=== PATIENT | male | born 1945 | race Caucasian/White ===

== ENCOUNTER 2016-12-05 05:48 | Emergency (ER) | payer BC ==
[2016-12-05] MEDS ORDERED: NS 0.9% 1000 ML* 1,000 ML IV ONE (06:08)
[2016-12-05] MEDS ORDERED: Ketorolac INJ* 30 MG/ML 1 ML VIAL ONE (06:17)
[2016-12-05 06:45] LABS: Hematocrit 43 % (42-52); Hemoglobin 14.2 g/dl (14.0-18.0); Mean Corpuscular HGB Conc 33 g/dl (31-36); Mean Corpuscular Hemoglobin 30 pg (27-31); Mean Corpuscular Volume 90 fL (80-94); Mean Platelet Volume 9 um3 (7.4-10.4); Red Blood Count 4.76 10^6/ul (4.0-5.4); Red Cell Distribution Width 14 % (10.5-15); White Blood Count 8.2 10^3/ul (3.5-10.8)
[2016-12-05 06:50] LABS: Urine Bacteria Absent (Absent); Urine Bilirubin Negative (Negative); Urine Glucose Negative (Negative); Urine Nitrite Negative (Negative)
[2016-12-05 07:02] LABS: ALT 15 U/L (7-52); AST 17 U/L (13-39); Albumin 4.2 g/dL (3.2-5.2); Alkaline Phosphatase 50 U/L (34-104); Anion Gap 5 mmol/L (2-11); BUN/Creatinine Ratio 19.7 (8-20); Blood Urea Nitrogen 25 mg/dL (6-24); C Reactive Protein < 1.00 mg/L (< 5.00); CO2 Carbon Dioxide 24 mmol/L (22-32); Calcium 9.4 mg/dL (8.6-10.3); Chloride 108 mmol/L (101-111); EGFR African American 72.1 (>60); EGFR Non-African American 56.1 (>60); Globulin 2.5 g/dL (2-4); Glucose 125 mg/dL (70-100); Lipase 28 U/L (11.0-82.0); Potassium 4.1 mmol/L (3.5-5.0); Sodium 137 mmol/L (133-145); Total Protein 6.7 g/dL (6.4-8.9)
[2016-12-05 07:04] LABS: Troponin I 0.01 ng/mL (<0.04)
[2016-12-05] MEDS ORDERED: Ketorolac INJ* 30 MG/ML 1 ML VIAL IV PUSH ONE (07:50)
[2016-12-05] MEDS ORDERED: NS 0.9% 1000 ML* 2,000 ML IV ONE (07:50)
--- NOTE | 2016-12-05 08:31 | RAD ---
CLINICAL HISTORY: Left flank pain COMPARISON: April 04, 2005 TECHNIQUE: Multiple contiguous axial CT scans were obtained of the abdomen and pelvis, without intravenous contrast enhancement. Coronal and sagittal multiplanar reformations are submitted for review. Oral contrast was not administered. FINDINGS: The study is limited by the lack of intravenous contrast. This limits evaluation of the solid organs and vasculature. LUNG BASES: There are trace bilateral pleural effusions LIVER: The liver is normal in shape, size, contour, and attenuation. BILE DUCTS: There is no intrahepatic or extrahepatic biliary dilatation. GALLBLADDER: The gallbladder is normal, without pericholecystic inflammatory change. PANCREAS: The pancreas is normal, without mass or ductal dilatation. SPLEEN: Normal in size and appearance. UPPER GI TRACT: Evaluation of the gastrointestinal tract is limited by incomplete gastric distention. The upper GI tract is unremarkable. SMALL BOWEL AND MESENTERY: The small bowel is normal in contour, course, and caliber. There is no obstruction or dilatation. COLON: The colon is normal in contour, course, caliber. There is no pericolonic inflammatory change. ADRENALS: Normal bilaterally. KIDNEYS: There has been interval development of a multiseptated cyst of the lower pole of the right kidney measuring up to 5.2 cm in size. There are bilateral renal calyceal stones. There is a 0.2 cm left UVJ stone. There is mild hydroureter. BLADDER: The bladder is incompletely distended but is grossly normal. PELVIC ORGANS: The prostate gland is markedly enlarged with intraluminal extension into the bladder. AORTA: The aorta is normal. IVC: Unremarkable LYMPH NODES: There is no lymphadenopathy by size criteria. ABDOMINAL WALL: There is no evidence for abdominal wall hernia. BONES AND SOFT TISSUES: Degenerative changes are noted OTHER: None IMPRESSION: 1. BILATERALLY NEPHROLITHIASIS INCLUDING A 0.2 CM LEFT UVJ STONE WITH MILD LEFT HYDROURETER. 2. MARKEDLY ENLARGED PROSTATE WITH INTRALUMINAL EXTENSION INTO THE BLADDER. 3. THERE HAS BEEN INTERVAL DEVELOPMENT OF A MULTISEPTATED CYST OF THE LOWER POLE OF THE RIGHT KIDNEY. RECOMMEND CORRELATION WITH CONTRAST-ENHANCED RENAL PROTOCOL CT OR MRI IN THE NONACUTE SETTING
[2016-12-05 09:22] VITALS: BP 140/86
--- NOTE | 2017-01-01 14:48 | ED ---
Yamil Szymanski SooYoung, scribed for Dayton Marshall MD on 12/05/16 at 0745 . Abdominal Pain/Male - HPI Summary HPI Summary: A 71 y/o M presents to ED with LLQ abd pain onset approx 2300 last night. Associated sx: L flank pain, hematuria onset 1999 yesterday, mild rectal pain/ pressure. Denies: fever, chills, testicular pain. Was unable to sleep last night. Pt states pain has reduced while being in ED, rated as 1 to 2 out of 10 at bedside. Took 2 Aleve around 0200, one more Aleve at 0500, and Cipro last night to moderate relief. Pert PMHx: kidney stones, enlarged prostate, prostatitis. Pert SHx: [address] Brito, urologist. - History of Current Complaint Chief Complaint: EDFlankPain Stated Complaint: LEFT FLANK PAIN Hx Obtained From: Patient Onset/Duration: Gradual Onset, Lasting Hours, Still Present Timing: Constant Severity Initially: Moderate Severity Currently: Moderate Pain Intensity: 6 - initially Pain Scale Used: 0-10 Numeric Location: Discrete At: LLQ, Flank - L Alleviating Factor(s): OTC Analgesics Associated Signs And Symptoms: Positive: Urinary Symptoms - hematuria, Other - pos: rectal pain/pressure; neg: chills, testicular pain. Negative: Fever, Chest Pain - Allergies/Home Medications Allergies/Adverse Reactions: Allergies Allergy/AdvReac Type Severity Reaction Status Date / Time No Known Allergies Allergy Verified 12/05/16 05:55 PMH/Surg Hx/FS Hx/Imm Hx Previously Healthy: No Cardiovascular History: Reports: Hx Hypercholesterolemia Respiratory History: Reports: Hx Asthma History: Reports: Hx Kidney Stones Infectious Disease History: Denies: Traveled Outside the [place] in Last 30 Days - Social History Occupation: Employed Full-time Lives: With Family Alcohol Use: None Hx Substance Use: No Substance Use Type: Reports: None Hx Tobacco Use: No Smoking Status (MU): Never Smoked Tobacco Review of Systems Negative: Fever, Chills Negative: Erythema Negative: Sore Throat Negative: Chest Pain Negative: Shortness Of Breath, Cough Positive: Abdominal Pain. Negative: Vomiting, Nausea Positive: flank pain - L, hematuria, pain - rectal pain/pressure. Negative: dysuria, other - neg: testicular pain Negative: Myalgia, Edema Negative: Rash Neurological: Other - neg: dizziness All Other Systems Reviewed And Are Negative: Yes Physical Exam - Summary Physical Exam Summary: Constitutional: Well-developed, Well-nourished, Alert. (-) Distressed Skin: Warm, Dry HENT: Normocephalic; Atraumatic Eyes: Conjunctiva normal Neck: Musculoskeletal ROM normal neck. (-) JVD, (-) Stridor, (-) Tracheal deviation Cardio: Rhythm regular, rate normal, Heart sounds normal; Intact distal pulses; The pedal pulses are 2+ and symmetric. Radial pulses are 2+ and symmetric. (-) Murmur Pulmonary/Chest wall: Effort normal. (-) Respiratory distress, (-) Wheezes, (-) Rales Abd: Soft, (-) Tenderness, (-) Distension, (-) Guarding, (-) Rebound Musculoskeletal: (-) Edema Lymph: (-) Cervical adenopathy Neuro: Alert, Oriented x3 Psych: Mood and affect Normal Triage Information Reviewed: Yes Vital Signs On Initial Exam: Initial Vitals Temp Pulse Resp BP Pulse Ox 96.8 F 53 16 171/95 98 12/05/16 05:50 12/05/16 05:50 12/05/16 05:50 12/05/16 05:50 12/05/16 05:50 Vital Signs Reviewed: Yes Diagnostics - Vital Signs Vital Signs Temp Pulse Resp BP Pulse Ox 12/05/16 06:44 50 96 12/05/16 06:43 148/87 12/05/16 06:02 98.9 F 53 16 171/95 98 12/05/16 05:50 96.8 F 53 16 171/95 98 - Laboratory Lab Results: Lab Results 12/05/16 12/05/16 12/05/16 Range/Units 06:30 06:30 06:30 WBC 8.2 (3.5-10.8) 10^3/ul RBC 4.76 (4.0-5.4) 10^6/ul Hgb 14.2 (14.0-18.0) g/dl Hct 43 (42-52) % MCV 90 (80-94) fL MCH 30 (27-31) pg MCHC 33 (31-36) g/dl RDW 14 (10.5-15) % Plt Count 155 (150-450) 10^3/ul MPV 9 (7.4-10.4) um3 Neut % (Auto) 75.7 (38-83) % Lymph % (Auto) 15.2 L (25-47) % [place] % (Auto) 6.5 (1-9) % Eos % (Auto) 2.2 (0-6) % Baso % (Auto) 0.4 (0-2) % Absolute Neuts (auto) 6.2 (1.5-7.7) 10^3/ul Absolute Lymphs (auto) 1.2 (1.0-4.8) 10^3/ul Absolute Monos (auto) 0.5 (0-0.8) 10^3/ul Absolute Eos (auto) 0.2 (0-0.6) 10^3/ul Absolute Basos (auto) 0 (0-0.2) 10^3/ul Absolute Nucleated RBC 0 10^3/ul Nucleated RBC % 0 INR (Anticoag Therapy) 0.84 L (0.89-1.11) APTT 28.6 (26.0-36.3) seconds Sodium (133-145) mmol/L Potassium (3.5-5.0) mmol/L Chloride (101-111) mmol/L Carbon Dioxide (22-32) mmol/L Anion Gap (2-11) mmol/L BUN (6-24) mg/dL Creatinine (0.67-1.17) mg/dL Est GFR ( Amer) (>60) Est GFR (Non-Af Amer) (>60) BUN/Creatinine Ratio (8-20) Glucose (70-100) mg/dL Lactic Acid (0.5-2.0) mmol/L Calcium (8.6-10.3) mg/dL Total Bilirubin (0.2-1.0) mg/dL AST (13-39) U/L ALT (7-52) U/L Alkaline Phosphatase (34-104) U/L Troponin I (<0.04) ng/mL C-Reactive Protein (< 5.00) mg/L Total Protein (6.4-8.9) g/dL Albumin (3.2-5.2) g/dL Globulin (2-4) g/dL Albumin/Globulin Ratio (1-3) Lipase (11.0-82.0) U/L Urine Color Yellow Urine Appearance Cloudy Urine pH 5.0 (5-9) Ur Specific [place] 1.014 (1.010-1.030) Urine Protein Negative (Negative) Urine Ketones Negative (Negative) Urine Blood 3+ H (Negative) Urine Nitrate Negative (Negative) Urine Bilirubin Negative (Negative) Urine Urobilinogen Negative (Negative) Ur Leukocyte Esterase Negative (Negative) Urine WBC (Auto) Absent (Absent) Urine RBC (Auto) 3+(>10/hpf) H (Absent) Urine Bacteria Absent (Absent) Urine Glucose Negative (Negative) 12/05/16 12/05/16 Range/Units 06:30 06:30 WBC (3.5-10.8) 10^3/ul RBC (4.0-5.4) 10^6/ul Hgb (14.0-18.0) g/dl Hct (42-52) % MCV (80-94) fL MCH (27-31) pg MCHC (31-36) g/dl RDW (10.5-15) % Plt Count (150-450) 10^3/ul MPV (7.4-10.4) um3 Neut % (Auto) (38-83) % Lymph % (Auto) (25-47) % [place] % (Auto) (1-9) % Eos % (Auto) (0-6) % Baso % (Auto) (0-2) % Absolute Neuts (auto) (1.5-7.7) 10^3/ul Absolute Lymphs (auto) (1.0-4.8) 10^3/ul Absolute Monos (auto) (0-0.8) 10^3/ul Absolute Eos (auto) (0-0.6) 10^3/ul Absolute Basos (auto) (0-0.2) 10^3/ul Absolute Nucleated RBC 10^3/ul Nucleated RBC % INR (Anticoag Therapy) (0.89-1.11) APTT (26.0-36.3) seconds Sodium 137 (133-145) mmol/L Potassium 4.1 (3.5-5.0) mmol/L Chloride 108 (101-111) mmol/L Carbon Dioxide 24 (22-32) mmol/L Anion Gap 5 (2-11) mmol/L BUN 25 H (6-24) mg/dL Creatinine 1.27 H (0.67-1.17) mg/dL Est GFR ( Amer) 72.1 (>60) Est GFR (Non-Af Amer) 56.1 (>60) BUN/Creatinine Ratio 19.7 (8-20) Glucose 125 H (70-100) mg/dL Lactic Acid 1.0 (0.5-2.0) mmol/L Calcium 9.4 (8.6-10.3) mg/dL Total Bilirubin 0.80 (0.2-1.0) mg/dL AST 17 (13-39) U/L ALT 15 (7-52) U/L Alkaline Phosphatase 50 (34-104) U/L Troponin I 0.01 (<0.04) ng/mL C-Reactive Protein < 1.00 (< 5.00) mg/L Total Protein 6.7 (6.4-8.9) g/dL Albumin 4.2 (3.2-5.2) g/dL Globulin 2.5 (2-4) g/dL Albumin/Globulin Ratio 1.7 (1-3) Lipase 28 (11.0-82.0) U/L Urine Color Urine Appearance Urine pH (5-9) Ur Specific [place] (1.010-1.030) Urine Protein (Negative) Urine Ketones (Negative) Urine Blood (Negative) Urine Nitrate (Negative) Urine Bilirubin (Negative) Urine Urobilinogen (Negative) Ur Leukocyte Esterase (Negative) Urine WBC (Auto) (Absent) Urine RBC (Auto) (Absent) Urine Bacteria (Absent) Urine Glucose (Negative) Result Diagrams: 12/05/16 06:30 12/05/16 06:30 Lab Statement: Any lab studies that have been ordered have been reviewed, and results considered in the medical decision making process. - CT ABD/PEL CT Interpretation: Positive (See Comments) - IMPRESSION: 1. BILATERALLY NEPHROLITHIASIS INCLUDING A 0.2 CM LEFT UVJ STONE WITH MILD LEFT HYDROURETER. 2. MARKEDLY ENLARGED PROSTATE WITH INTRALUMINAL EXTENSION INTO THE BLADDER. 3. THERE HAS BEEN INTERVAL DEVELOPMENT OF A MULTISEPTATED CYST OF THE LOWER POLE OF THE RIGHT KIDNEY. RECOMMEND CORRELATION WITH CONTRAST-ENHANCED RENAL PROTOCOL CT OR MRI IN THE NONACUTE SETTING. Re-Evaluation - Re-Evaluation 1 Re-Evaluation Time: 09:03 Change: Improved Comment: Discussing CT results with pt. Abdominal Pain Fem Course/Dx - Course Course Of Treatment: Pt is a 71 y/o M presenting with LLQ abd pain onset approx 2300 last night. Associated sx: L flank pain, hematuria onset 1999 yesterday, mild rectal pain/pressure. Denies: fever, chills, testicular pain. Took 2 Aleve around 0200, one more Aleve at 0500, and Cipro last night to moderate relief. Pert PMHx: kidney stones, enlarged prostate, prostatitis. Pert SHx: [address] Brito, urologist. Pt given fluids in ED. Labs show elevated BUN, creatinine, glucose. UA results show 3+ blood and 3+ RBC. ABD/PEL CT showed "1. BILATERALLY NEPHROLITHIASIS INCLUDING A 0.2 CM LEFT UVJ STONE WITH MILD LEFT HYDROURETER. 2. MARKEDLY ENLARGED PROSTATE WITH INTRALUMINAL EXTENSION INTO THE BLADDER. 3. THERE HAS BEEN INTERVAL DEVELOPMENT OF A MULTISEPTATED CYST OF THE LOWER POLE OF THE RIGHT KIDNEY. RECOMMEND CORRELATION WITH CONTRAST-ENHANCED RENAL PROTOCOL CT OR MRI IN THE NONACUTE SETTING.". Will D/C home with percocet. - Diagnoses Provider Diagnoses: Enlarged prostate, Ureteral stone, Renal insufficiency Discharge - Discharge Plan Condition: Stable Disposition: HOME Prescriptions: oxyCODONE/Acetamin 5/325 MG* [Percocet 5/325 TAB*] 1 tab PO Q6H PRN #8 tab MDD 4 PRN Reason: Pain - Moderate To Severe Patient Education Materials: Oxycodone/Acetaminophen (By mouth), Ureteral Stones (ED) Referrals: German Locke MD [Primary Care Provider] - Additional Instructions: Please return to the ED if you experience new or worsening symptoms. The documentation as recorded by the Yamil garcia SooYoung accurately reflects the service I personally performed and the decisions made by , Dayton Marshall MD.
== END 2016-12-05 09:31 | disposition home or self-care (01) ==
LOC: ED 05:48
DX: N40.0 Benign prostatic hyperplasia without lower urinary tract symptoms (principal); N20.1 Calculus of ureter; Z87.442 Personal history of urinary calculi; N28.9 Disorder of kidney and ureter, unspecified; E78.00 Pure hypercholesterolemia, unspecified; J45.909 Unspecified asthma, uncomplicated
CPT/HCPCS: 36415; 74176; 80053; 81003; 81015; 83605; 83690; 84484; 85025; 85610; 85730; 86140; 96361; 96374; 99283; J1885

== ENCOUNTER 2017-01-09 20:50 | Emergency (ER) | payer BC ==
[2017-01-09 21:12] LABS: Hematocrit 44 % (42-52); Hemoglobin 14.7 g/dl (14.0-18.0); Mean Corpuscular HGB Conc 34 g/dl (31-36); Mean Corpuscular Hemoglobin 30 pg (27-31); Mean Corpuscular Volume 88 fL (80-94); Mean Platelet Volume 9 um3 (7.4-10.4); Red Blood Count 4.93 10^6/ul (4.0-5.4); Red Cell Distribution Width 14 % (10.5-15)
--- NOTE | 2017-01-09 21:21 | ED ---
I, Oh,Soohrachealun, scribed for Valdez Jimenez MD on 01/09/17 at 2115 . HPI Chest Pain - HPI Summary HPI Summary: This 71 y/o male presents to ED for intermittent CP since 1600 PM this afternoon. Pt was painting the house at that time and just had his dog splash paint all over the floor. Pt initially dismissed the pain due to paint augie, and waited for the chest pain to subside before calling ambulance. Positive n/v , dizziness, and diaphoresis. 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 No NTG was given due to resolution of pain. CP is currently resolved. VSS and systolic blood pressure of 170 down to 155 is reported en route. PMHx includes well controlled HTN, HLD , and borderline DM. Pt is currently not on beta king. Pt has had remote stress test that was benign. - History of Current Complaint Time Seen by Provider: 01/09/17 20:55 Hx Obtained From: Patient, Medical Records Onset/Duration: Started Hours Ago, Atraumatic, Resolved Timing: Intermittent Chest Pain Location: Diffuse Chest Pain Radiates: No Character: Dull/Aching Aggravating Factor(s): Nothing Alleviating Factor(s): EMS Tx - ASA, Spontaneous Resolution Associated Signs and Symptoms: Positive: Chest Pain, Dizziness, Diaphoresis, Vomiting. Negative: Fever - Allergy/Home Medications Allergies/Adverse Reactions: Allergies Allergy/AdvReac Type Severity Reaction Status Date / Time No Known Allergies Allergy Verified 12/05/16 05:55 PMH/Surg Hx/FS Hx/Imm Hx Endocrine/Hematology History: Reports: Hx Diabetes - borderline Cardiovascular History: Reports: Hx Hypercholesterolemia - well controlled with atorvastatin, Hx Hypertension - well controlled with lisinopril Respiratory History: Reports: Hx Asthma History: Reports: Hx Kidney Stones - Family History Known Family History: Positive: Other - Positive Crohn's to sister. Positive prostate CA to father - Social History Alcohol Use: None Hx Substance Use: No Substance Use Type: Reports: None Hx Tobacco Use: No Smoking Status (MU): Never Smoked Tobacco Review of Systems Positive: Skin Diaphoresis. Negative: Fever Positive: Chest Pain Positive: Vomiting, Nausea Neurological: Other - Positive dizziness All Other Systems Reviewed And Are Negative: Yes Physical Exam Triage Information Reviewed: Yes Vital Signs Reviewed: Yes Appearance: Positive: Well-Appearing, No Pain Distress Skin: Positive: Warm Head/Face: Positive: Normal Head/Face Inspection Eyes: Positive: JONH ENT: Positive: Hearing grossly normal Neck: Positive: Supple Cardiovascular: Positive: RRR Abdomen Description: Positive: Nontender, Soft Bowel Sounds: Positive: Present Musculoskeletal: Positive: Strength/ROM Intact Neurological: Positive: Alert, Oriented to Person Place, Time Psychiatric: Positive: Affect/Mood Appropriate Diagnostics - Laboratory Result Diagrams: 01/09/17 21:03 01/09/17 21:03 Lab Statement: Any lab studies that have been ordered have been reviewed, and results considered in the medical decision making process. - EKG 2055 Cardiac Rate: NL - 52 bpm EKG Rhythm: Sinus Rhythm Re-Evaluation - Re-Evaluation First Eval Re-Evaluation Time: 22:33 Change: Improved - pt remains pain free Comment: Plan of care involving repeat trop is discussed, and pt is agreeable. Chest Pain Course/Dx - Course Assessment/Plan: This 71 y/o male presents to ED for intermittent CP since 1600 PM. Pt was painting the house at the time of onset, and initially dismissed the pain as due to paint fume. Pt's dog had jumped on a paint can and splashed canful of paint all over the floor. Pt waited for CP to subside, and eventually came into ED. Positive n/v and dizziness. CXR is offered but refused by pt, but he does agree to repeat trop. Eight hour trop is 0.01 and negative. Pt is safe for discharge. - Diagnoses Provider Diagnoses: Chest pain Discharge - Discharge Plan Condition: Stable Disposition: HOME Patient Education Materials: Chest Pain (ED) Referrals: German Locke MD [Primary Care Provider] - 2 Days The documentation as recorded by the Bladimir garcia Soohyun accurately reflects the service I personally performed and the decisions made by me, Valdez Jimenez MD.
[2017-01-09 21:26] LABS: Albumin 4.5 g/dL (3.2-5.2); BUN/Creatinine Ratio 27.6 (8-20); Calcium 9.5 mg/dL (8.6-10.3); EGFR Non-African American 62.2 (>60); Globulin 2.9 g/dL (2-4); Potassium 3.8 mmol/L (3.5-5.0); Total Bilirubin 1.1 mg/dL (0.2-1.0); Total Protein 7.4 g/dL (6.4-8.9)
[2017-01-09 21:27] LABS: Troponin I 0.01 ng/mL (<0.04)
[2017-01-09] MEDS ORDERED: NS 0.9% 1000 ML* 1,000 ML IV ONE (22:34)
[2017-01-10 01:01] VITALS: BP 124/77
== END 2017-01-10 01:00 | disposition home or self-care (01) ==
LOC: ED 20:50
DX: R07.9 Chest pain, unspecified (principal); R42 Dizziness and giddiness; R61 Generalized hyperhidrosis; R11.10 Vomiting, unspecified; R73.03 Prediabetes; E78.00 Pure hypercholesterolemia, unspecified; J45.909 Unspecified asthma, uncomplicated; Z87.442 Personal history of urinary calculi
CPT/HCPCS: 36415; 80053; 83605; 83735; 84484; 85025; 93005; 99283

== ENCOUNTER 2017-06-07 17:39 | Day surgery (SDC) | payer BC ==
--- NOTE | 2017-06-07 16:36 | HP ---
CC: Dr. German Locke DATE OF ADMISSION: 06/07/2017. 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 He has been maintained on Finasteride and on Tamsulosin 0.4 mg daily with improvement in his voiding. His PSA has been stable at about 2.8. He is also a known stone former and had an episode of renal colic in the past passing a small calculus spontaneously. This morning he woke up with severe right flank pain and noted gross hematuria. There was no associated fever or chills. He had a noncontrast CT of the abdomen and pelvis which showed bilateral small renal calculi measuring 5 mm or less on each side. There was moderate right hydronephrosis and a 6.5 mm calculus at the level of the right ureteropelvic junction. There was also a cyst noted in the lower pole of the right kidney. The CT showed a very large prostate. No other abnormalities were noted. PAST MEDICAL HISTORY AND SYSTEM REVIEW: The patient has hyperlipidemia and is maintained on Lipitor 20 mg daily. He has hypertension on Lisinopril 5 mg daily. He is also on Singulair 10 mg daily. ALLERGIES: He denies any allergies to medications. FAMILY HISTORY: Relevant for both his father and paternal uncle who both had prostate cancer. PHYSICAL EXAMINATION GENERAL: He is a pleasant and healthy-looking white male. VITAL SIGNS: Blood pressure 120/80, pulse of 60. LUNGS: Clear. HEART: Regular and rhythmic, no murmurs. ABDOMEN: Soft. There is moderate right CVA tenderness. The rest of the abdominal exam is normal. RECTAL: Rectal exam on a previous visit had shown a very large, but benign feeling prostate. IMPRESSION: 1. Bilateral small, nonobstructing renal calculi. 2. 6.5 mm calculus at the right ureteropelvic junction associated with moderate right hydronephrosis. 3. Very large prostate which had measured 170 cc on renal ultrasound in February 2017. PLAN: It is very unlikely that he will be able to pass the stone considering the very large prostate. The plan is for cystoscopy and placement of a right ureteral stent in preparation for definitive treatment of the stone, probably with shockwave lithotripsy. I discussed the above plans. There is a possibility that the stent could not be placed because of the very large prostate and in that case, he will need to have a percutaneous nephrostomy placement. [id number]/CPS #: [id number] MTDD
[2017-06-07] MEDS ORDERED: Iohexol 180 (CONTRAST) 10 ML SDV IV ONE (19:05)
[2017-06-07] MEDS ORDERED: cefTRIAXone(*) 2 GM VIAL ONE (19:55)
[2017-06-07] MEDS ORDERED: Midazolam* 1 MG/ML 2 ML VIAL (2 MG) ONE (20:09)
[2017-06-07] MEDS ORDERED: Ondansetron INJ* 2 MG/ML VIAL ONE (20:25)
[2017-06-07] MEDS ORDERED: Dexamethasone IV* 4 MG/ML 1 ML (4 MG) ONE (20:25)
[2017-06-07] MEDS ORDERED: Ketorolac INJ* 30 MG/ML 1 ML VIAL ONE (20:25)
[2017-06-07] MEDS ORDERED: Propofol* 10 MG/ML 20 ML BTL IV PUSH ONE (20:25)
[2017-06-07] MEDS ORDERED: Lidocaine 2% PF * 5 ML VIAL ONE (20:26)
[2017-06-07] MEDS ORDERED: oxyCODONE TAB* 5 MG TAB PO PRN (20:59)
[2017-06-07] MEDS ORDERED: Acetaminophen TAB* 325 MG PO PRN (20:59)
[2017-06-07] MEDS ORDERED: Naloxone* 0.4 MG/ML 1 ML VIAL IV PRN (20:59)
--- NOTE | 2017-06-07 21:47 | RAD ---
INDICATION: Cystoscopy with stent placement COMPARISON: None FINDINGS: 49 seconds of fluoroscopy were provided for the urology department. Fluoroscopic spot imaging of the right kidney were obtained for operative control and show placement of a right ureteral stent . CPT II Codes: 6045F (fluoro time doc)
[2017-06-07 22:48] VITALS: BP 121/85
--- NOTE | 2017-06-08 07:51 | RAD ---
INDICATION: Status post right ureteral stent insertion. COMPARISON: Comparison is made with a prior CT of the abdomen and pelvis from June 07, 2017. TECHNIQUE: Frontal supine films of the abdomen were obtained. FINDINGS: The small bowel and colon appear nondistended. There is a right ureteral stent catheter present on the right side. There appears to be a 5 mm ureteral calculus adjacent to the midportion of the catheter similar to the prior study. IMPRESSION: STATUS POST RIGHT URETERAL CATHETER PLACEMENT AND PROBABLE URETERAL CALCULUS NOTED.
--- NOTE | 2017-06-08 16:04 | OP ---
CC: Dr. German Locke OPERATIVE REPORT: DATE OF OPERATION: 06/07/17 DATE OF : 47 SURGEON: Sedrick Brito MD ANESTHESIOLOGIST: Rox Dooley MD ANESTHESIA: General. PRE-OP DIAGNOSES: 1. Benign prostatic hyperplasia, with a very large prostate. 2. Proximal right ureteral calculus. POST-OP DIAGNOSES: 1. Benign prostatic hyperplasia,with a very large prostate . 2. Proximal right ureteral calculus. OPERATIVE PROCEDURE: 1. Cystoscopy. 2. Right retrograde pyelography. 3. Placement of right ureteral stent (6-[place]ankan). 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 Noncontrast CT of the abdomen and pelvis showed a 6.5-mm calculus in the proximal right ureter associated with right hydronephrosis. The CT showed a very large prostate. The patient is known to have a very large prostate and measured about 180 cc by transabdominal ultrasound. He has been maintained on tamsulosin and on finasteride for several years, not bothered by his voiding, and having minimal post void residual. Because of the above history and findings and the unlikelihood that the stone will pass spontaneously, especially with a very large prostate, the above procedure was advised and accepted. PATHOLOGY: At cystoscopy, the penile and bulbar urethrae looked normal. The prostatic urethra was very large, measuring about 6 cm in length with a very large and vascular median lobe. The prostate was very vascular and bled easily to instrumentation. Examination of the bladder showed moderate diffuse trabeculations. There were no suspicious bladder lesions seen. The ureteral orifices were identified with difficulty because of the median lobe. The looked normal. At fluoroscopy, a radiopaque calculus was noted in the proximal right ureter. Right retrograde pyelography showed moderate right hydronephrosis. DESCRIPTION OF PROCEDURE: After successful general anesthesia, the patient was placed in the lithotomy position and was prepped and draped for cystoscopy. Cystoscopy was performed. The bladder was inspected and the above findings were noted. The right ureteral orifice was identified with difficulty. A Glidewire was then introduced into the orifice and after several attempts was successfully passed into the renal pelvis past the stone. A size 5-[place] open-ended catheter was then fed on top of the glidewire and positioned proximal to the stone. The stone was impacted and there was resistance to the introduction of the open ended ureteral catheter at the level of the stone. The Glidewire was removed and retrograde pyelography was performed demonstrating the hydronephrosis. A hybrid wire was then introduced through the open-ended catheter and the catheter was removed keeping the guidewire in place. Attempt at introducing a 6-[place] stent over the guidewire was very difficult due to the very large size of the prostate, which interfered with the smooth introduction of the stent. The stent was successfully introduced with the proximal end coiling in the renal pelvis and the distal end coiling inside the bladder. Because of the instrumentation, there was oozing of blood from the lateral lobes and especially the median lobe of the prostate making the visualization difficult. The bladder was then irrigated and some of the clots were removed. A size 16- [place] Chua catheter was then passed inside the bladder. Final x-ray showed the stent was in good position. The patient tolerated the procedure well and left the operating room in good condition. The plan is to obtain a KUB postoperatively. Decision will be made regarding the definitive treatment of the stone. [id number] #: [id number] MTDD
== END 2017-06-07 22:52 | disposition home or self-care (01) ==
LOC: OR 17:39
PROVIDERS: ATTEND Urology
DX: N13.2 Hydronephrosis with renal and ureteral calculous obstruction (principal); N40.0 Benign prostatic hyperplasia without lower urinary tract symptoms; R31.0 Gross hematuria; E78.5 Hyperlipidemia, unspecified; I10 Essential (primary) hypertension; R73.03 Prediabetes; M54.5 Low back pain
CPT/HCPCS: 74018; 74420; C1876; J0696; J1100; J1885; J2250; J2405; J2704

== ENCOUNTER 2017-06-13 06:08 | Day surgery (SDC) | payer BC ==
--- NOTE | 2017-06-10 14:56 | HP ---
CC: Dr. 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 He also was noted to have a very large prostate making it unlikely that the stone would pass spontaneously and making ureteroscopy very difficult. On 06/07/17, he was taken to the operating room and had a cystoscopy and a placement of a right ureteral stent. The procedure was difficult due to the very large prostate (it measured 180 cc by imaging) and a large vascular median lobe. Postoperatively, the episode of renal colic resolved; however, he was having significant degree of on and off gross hematuria originating from his prostate and also was having right flank pain with voiding due to the high voiding pressure and reflux alongside the stent. Postoperative KUB showed a 5- to 6-mm calculus in the mid right ureter at the level of L4-L5 adjacent to the ureteral stent. Because of the expected difficulty passing the stone spontaneously and difficulty performing retrograde ureteroscopy, the plan is for shock wave lithotripsy of the ureteral calculus followed at a later date by stent removal. There have not been any changes in his history, physical, or medications compared to his admission of 06/07/17. The only difference is the patient has been taking Cipro as prophylaxis for prostatitis. I discussed the above plans with Dr. Cyr and all his questions were answered. [id number]/[facility] #: [id number] [facility]ARE SYSTEMAlysha
[~2017-06-13 06:08] MED LIST: Buffered Lidocaine 0.9% SYRIN* 5 ML/SYR SYRINGE INTRADERM ONE; Famotidine IV* 10 MG/ML 2 ML (20 mg) IV ONE
[2017-06-13] MEDS ORDERED: Famotidine IV* 10 MG/ML 2 ML (20 mg) ONE (06:52)
[2017-06-13] MEDS ORDERED: Buffered Lidocaine 0.9% SYRIN* 5 ML/SYR SYRINGE ONE (06:52)
[2017-06-13] MEDS ORDERED: cefTRIAXone(*) 2 GM VIAL ONE (06:53)
[2017-06-13] MEDS ORDERED: Midazolam* 1 MG/ML 2 ML VIAL (2 MG) ONE (07:38)
[2017-06-13] MEDS ORDERED: Lidocaine 2% PF * 5 ML VIAL ONE (07:45)
[2017-06-13] MEDS ORDERED: Ketorolac INJ* 30 MG/ML 1 ML VIAL ONE (07:45)
[2017-06-13] MEDS ORDERED: Ondansetron INJ* 2 MG/ML VIAL ONE (07:45)
[2017-06-13] MEDS ORDERED: Propofol* 10 MG/ML 20 ML BTL IV PUSH ONE (07:45)
--- NOTE | 2017-06-13 08:06 | RAD ---
Indication: Shock wave lithotripsy. Single view of the abdomen demonstrates right ureteral stent in place. Calcification overlies the right psoas margin at approximately L3 level. IMPRESSION: Right ureteral stent in place. Calcification at the L3 level likely represents ureteral stone. This is unchanged from June 07, 2017.
[2017-06-13] MEDS ORDERED: Acetaminophen TAB* 325 MG PO PRN (08:25)
[2017-06-13] MEDS ORDERED: Naloxone* 0.4 MG/ML 1 ML VIAL IV PRN (08:25)
[2017-06-13 09:49] VITALS: BP 125/83
--- NOTE | 2017-06-14 01:15 | OP ---
CC: Dr. German Locke * DATE OF OPERATION: 06/13/17 - [facility] DATE OF : 47 SURGEON: Sedrick Brito MD ANESTHESIOLOGIST: Rox Dooley MD ANESTHESIA: IV sedation with MAC. PRE-OP DIAGNOSES: 1. Mid right ureteral calculus (5 to 6 mm). 2. Status post placement of right ureteral stent. POST-OP DIAGNOSES: 1. Mid right ureteral calculus (5 to 6 mm). 2. Status post placement of right ureteral stent. OPERATIVE PROCEDURE: Shockwave lithotripsy of right ureteral calculus. 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 He had an urgent placement of the right ureteral stent. The procedure was rather difficult because of a very large obstructing and vascular prostate. His postoperative KUB showed the stone to be at the level of L3-L4. Performing a ureteroscopy for stone extraction is anticipated to be very difficult due to the very large size of the prostate and the fish hooking of the ureter. He is brought in for shockwave lithotripsy of the stone as definitive treatment. PATHOLOGY: Preoperative KUB and fluoroscopy showed the right ureteral stent in good position and a 5 mm calculus in the mid ureter adjacent to the stent. DESCRIPTION OF PROCEDURE: Under intravenous sedation with the patient in the supine position, the right ureteral calculus was visualized in both the PA and the oblique x-ray views. The calculus was away from the transverse process of L4 and it was safe to perform the shockwave lithotripsy with no need for special positioning. A total of 2,400 shocks were then delivered at a rate of 90 shocks per minute. The procedure went well and the stone seemed to have changed in density and in size, indicating adequate fragmentation. Because of the anticipated ureteral edema from the SWL, the stent was not removed. The patient tolerated the procedure well and left the operating room in good condition. The plan is to see the patient next week in the office and the stent will be removed under local anesthesia. [id number]/[facility] #: [id number] MTDD
== END 2017-06-13 10:35 | disposition home or self-care (01) ==
LOC: OR 06:08
PROVIDERS: ATTEND Urology
DX: N20.1 Calculus of ureter (principal); R31.0 Gross hematuria; N40.0 Benign prostatic hyperplasia without lower urinary tract symptoms; I10 Essential (primary) hypertension; R73.03 Prediabetes; M54.5 Low back pain
CPT/HCPCS: 74018; J0696; J1885; J2250; J2405; J2704

== ENCOUNTER 2018-04-11 06:35 | Day surgery (SDC) | payer BC ==
[~2018-04-11 06:35] MED LIST changes: -Famotidine IV* 10 MG/ML 2 ML (20 mg) IV ONE
[2018-04-11] MEDS ORDERED: Buffered Lidocaine 0.9% SYRIN* 5 ML/SYR SYRINGE ONE (07:04)
[2018-04-11] MEDS ORDERED: ceFAZolin 2 GM in NS PREMIX(*) 2 GM/100 ML BAG IVPB ONE (07:05)
[2018-04-11] MEDS ORDERED: fentaNYL* 50 MCG/ML 2 ML VIAL (100 MCG VIAL) ONE (08:17)
[2018-04-11] MEDS ORDERED: Midazolam* 1 MG/ML 2 ML VIAL (2 MG) ONE ×2 (08:17→08:55)
[2018-04-11] MEDS ORDERED: Bupivacaine 0.25% SDV PF* 10 ML VIAL INJ ONE (08:33)
[2018-04-11] MEDS ORDERED: Lidocain 1% EPI 1:100,000 * 30 ML MDV ONE ×2 (08:33→09:16)
[2018-04-11] MEDS ORDERED: Naloxone* 0.4 MG/ML 1 ML VIAL IV PRN (08:54)
[2018-04-11 10:25] VITALS: BP 121/85
== END 2018-04-11 10:30 | disposition home or self-care (01) ==
LOC: OR 06:35
PROVIDERS: ATTEND Plastic Surgery
DX: L72.0 Epidermal cyst (principal); I10 Essential (primary) hypertension; E78.5 Hyperlipidemia, unspecified; J30.2 Other seasonal allergic rhinitis
CPT/HCPCS: 88304; J0690; J2250; J3010; J3490

== ENCOUNTER 2023-02-03 10:04 | Inpatient (IN) ==
[2023-02-03 12:49] LABS: ABS Eosinophils 0.4 10^3/uL (0.0-0.5); ABS Lymphocytes 1.7 10^3/uL (1.0-4.8); ABS Monocytes 0.6 10^3/uL (0.0-1.1); ABS Neutrophils 3.3 10^3/uL (1.5-7.6); ABS Nucleated RBC 0.01 10^3/ul; Eosinophil % 6.6 %; Hemoglobin 10.1 g/dL (13.2-16.3); Lymphocyte % 28.2 %; Mean Corpuscular Hemoglobin 32.3 pg (27-33); Mean Corpuscular Hgb Conc 34.7 g/dL (31-36); Mean Corpuscular Volume 92.9 fL (80-97); Mean Platelet Volume 8.6 fL (7.5-11.2); Nucleated Red Blood Cells % 0.2 /100 WBC (0.0-0.4); Platelet Count 131 10^3/uL (150-450); Red Blood Count 3.12 10^6/uL (4.06-5.63); Red Cell Distribution Width 14.2 % (12-17); White Blood Count 6.1 10^3/uL (3.6-10.2)
[2023-02-03 13:32] LABS: Anion Gap 5 mmol/L (2-16); CO2 Carbon Dioxide 22 mmol/L (22-32); Calcium 9.9 mg/dL (8.6-10.3); Chloride 108 mmol/L (101-111); Potassium 5.2 mmol/L (3.5-5.0); Sodium 135 mmol/L (135-145)
[2023-02-03 13:38] LABS: ALT 18 U/L (7-52); AST 14 U/L (13-39); Albumin/Globulin Ratio 0.7 (1-3); Alkaline Phosphatase 42 U/L (35-149); Blood Urea Nitrogen 74 mg/dL (6-24); C Reactive Protein < 1.00 mg/L (<8.01); Creatinine, Serum 5.28 mg/dL (0.67-1.17); Globulin 5.6 g/dL (2-4); Glucose 81 mg/dL (70-100); Total Protein 9.6 g/dL (6.4-8.9); eGFR CKD-EPI 10.6 (>60)
[2023-02-03] MEDS ORDERED: Dextrose 50% Syringe 50 ml 25 GM/50 ML SYRINGE IV PUSH PRN (14:04)
[2023-02-03 14:06] LABS: HIV 4th Generation Nonreactive (Nonreactive)
[2023-02-03] MEDS ORDERED: Enoxaparin 30 MG/0.3 ML SYR SUBCUT ONE (14:10)
[2023-02-03 14:11] LABS: Hepatitis B Core IgM Nonreactive (Nonreactive)
[2023-02-03 14:24] LABS: Hepatitis B Surface Ab Not Immune (Immune); Hepatitis C Antibody Negative (Negative)
[2023-02-03] MEDS: NS 0.9% 1000 ml BAG 1,000 ML IV SCH (14:37)
[2023-02-03 14:53] LABS: Phosphorus 5.5 mg/dL (2.5-5.0)
[2023-02-03 14:54] LABS: Urine Appearance Cloudy; Urine Bilirubin Negative (Negative); Urine Blood 1+ (Negative); Urine Color Straw; Urine Glucose Negative (Negative); Urine Ketones Negative (Negative); Urine Nitrite Negative (Negative); Urine Protein 2+(100 mg/dL) (Negative); Urine Specific Gravity 1.009 (1.002-1.030); Urine Urobilinogen Negative (Negative)
[2023-02-03 15:07] LABS: Urine Bacteria Absent (Absent); Urine Red Blood Cell Trace(0-2/hpf) (Absent); Urine Squamous Epithelial Cell Present (Absent); Urine White Blood Cell Trace(0-5/hpf) (Absent)
[2023-02-03 15:39] LABS: Hepatitis B Surface Antigen Nonreactive (Nonreactive)
[2023-02-03 15:56] LABS: Hepatitis C Antibody Negative (Negative)
[2023-02-04] MEDS: NS 0.9% 1000 ml BAG 1,000 ML IV SCH ×2 (00:45→20:27)
[2023-02-04 06:16] LABS: ABS Eosinophils 0.4 10^3/uL (0.0-0.5); ABS Lymphocytes 1.7 10^3/uL (1.0-4.8); ABS Monocytes 0.5 10^3/uL (0.0-1.1); ABS Neutrophils 3.1 10^3/uL (1.5-7.6); Eosinophil % 6.3 %; Hematocrit 26.8 % (38-53); Hemoglobin 9.4 g/dL (13.2-16.3); Lymphocyte % 29.4 %; Mean Corpuscular Hemoglobin 32.5 pg (27-33); Mean Corpuscular Volume 92.8 fL (80-97); Mean Platelet Volume 7.9 fL (7.5-11.2); Platelet Count 113 10^3/uL (150-450); Red Blood Count 2.89 10^6/uL (4.06-5.63); Red Cell Distribution Width 14.1 % (12-17); White Blood Count 5.8 10^3/uL (3.6-10.2)
[2023-02-04 06:25] LABS: INR 0.95 (0.83-1.13)
[2023-02-04 06:33] LABS: Calcium 9.4 mg/dL (8.6-10.3); Creatinine, Serum 5.25 mg/dL (0.67-1.17); Potassium 5.3 mmol/L (3.5-5.0); eGFR CKD-EPI 10.7 (>60)
[2023-02-04] MEDS ORDERED: Desmopressin Acetate 30 MCG in NS 0.9% 50 ML 50 ML IVPB ONE (07:30)
[2023-02-04] MEDS ORDERED: Influenza vaccine *QUAD* *2023-24* 0.5 ML SYRINGE IM ONE (09:00)
[2023-02-04] MEDS ORDERED: Clindamycin 600 MG/NS BAG(*) 600 MG/50 ML BAG IV ONE (13:00)
[2023-02-04] MEDS ORDERED: Lidocaine 1% VIAL 10 MG/ML 30 ML VIAL ONE (14:42)
[2023-02-04] MEDS ORDERED: Heparin 2 UNITS/ML IVPREMIX 2,000 UNIT/1,000 ML BAG IV ONE (14:43)
[2023-02-04] MEDS ORDERED: fentaNYL 100 mcg/2 ml 50 MCG/ML VIAL ONE (14:52)
[2023-02-04] MEDS ORDERED: Midazolam 5 mg/5 ml VIAL 1 mg/ml 5 ml VIAL (5 mg) ONE (14:52)
[2023-02-04] MEDS ORDERED: Heparin - STEMI 5,000 UNITS/ML 1 ml VIAL IV ONE (15:25)
[2023-02-04 15:27] LABS: Kappa Free Light Chain 716 mg/dL
[2023-02-04 17:30] LABS: Complement C3 104 mg/dL (75 - 175)
[2023-02-05 08:06] LABS: Hematocrit 25.4 % (38-53); Mean Corpuscular Hemoglobin 32.7 pg (27-33); Mean Corpuscular Hgb Conc 35.4 g/dL (31-36); Mean Corpuscular Volume 92.4 fL (80-97); Mean Platelet Volume 8.5 fL (7.5-11.2); Platelet Count 116 10^3/uL (150-450); Red Blood Count 2.74 10^6/uL (4.06-5.63); White Blood Count 6.5 10^3/uL (3.6-10.2)
[2023-02-05 08:23] LABS: Calcium 9.3 mg/dL (8.6-10.3); Creatinine, Serum 4.39 mg/dL (0.67-1.17); Potassium 5.1 mmol/L (3.5-5.0); eGFR CKD-EPI 13.2 (>60)
[2023-02-05 11:28] LABS: C-ANCA Negative (Negative); P-ANCA Negative (Negative)
[2023-02-05 13:28] LABS: ABS Lymphocytes 1.1 10^3/uL (1.0-4.8); ABS Monocytes 0.5 10^3/uL (0.0-1.1); ABS Neutrophils 6.7 10^3/uL (1.5-7.6); Eosinophil % 0.2 %; Hematocrit 25.8 % (38-53); Lymphocyte % 13.7 %; Mean Corpuscular Hemoglobin 32.3 pg (27-33); Mean Corpuscular Hgb Conc 34.8 g/dL (31-36); Mean Corpuscular Volume 92.8 fL (80-97); Platelet Count 126 10^3/uL (150-450); Red Blood Count 2.78 10^6/uL (4.06-5.63); Red Cell Distribution Width 14.2 % (12-17); White Blood Count 8.4 10^3/uL (3.6-10.2)
[2023-02-05 13:36] LABS: Activated Partial Thrombo Time 24.8 seconds (26.0-38.0)
[2023-02-05] MEDS: NS 0.9% 1000 ml BAG 1,000 ML IV SCH ×2 (14:04→17:25)
[2023-02-05] MEDS: Heparin 5000 UNITS/ML 1 mL VIAL SUBCUT SCH ×2 (14:04→21:09)
[2023-02-05 14:27] LABS: Creatinine, Serum 4.3 mg/dL (0.67-1.17); eGFR CKD-EPI 13.5 (>60)
[2023-02-05 14:37] LABS: Urine Appearance Cloudy; Urine Bilirubin Negative (Negative); Urine Blood 2+ (Negative); Urine Color Yellow; Urine Glucose Negative (Negative); Urine Ketones Negative (Negative); Urine Nitrite Negative (Negative); Urine Protein 2+(100 mg/dL) (Negative); Urine Specific Gravity 1.014 (1.002-1.030); Urine Urobilinogen Negative (Negative)
[2023-02-05 14:46] LABS: Urine Bacteria Absent (Absent); Urine Red Blood Cell 2+(6-10/hpf) (Absent); Urine Squamous Epithelial Cell Present (Absent); Urine White Blood Cell Trace(0-5/hpf) (Absent)
[2023-02-05] MEDS ORDERED: Rasburicase 1.5 MG VIAL(NF) IVPB ONE (15:41)
[2023-02-05 20:02] LABS: UR Microalbumin (mg/L) 76.7 mg/L; Urine Creatinine 97.94 mg/dL; Urine Creatinine Concentration 97.94 mg/dL (20.00-370.00); Urine Microalbumin/Creatinine 78.3 mcg/mg (<31)
[2023-02-06] MEDS ORDERED: NS 0.9% IVPB ONE ×2 (06:00)
[2023-02-06] MEDS ORDERED: Rasburicase 1.5 MG VIAL(NF) IVPB ONE ×2 (06:00)
[2023-02-06] MEDS ORDERED: RASBURICASE IVPB ONE ×2 (06:00)
[2023-02-06] MEDS: Heparin 5000 UNITS/ML 1 mL VIAL SUBCUT SCH ×3 (06:44→21:49)
[2023-02-06] MEDS ORDERED: Dexamethasone IV 40 MG in NS 0.9% 50 ML 50 ML IVPB ONE ×2 (07:00→09:00)
[2023-02-06 07:13] LABS: Hematocrit 22.7 % (38-53); Mean Corpuscular Hemoglobin 32.7 pg (27-33); Mean Corpuscular Volume 93.2 fL (80-97); Platelet Count 100 10^3/uL (150-450); Red Blood Count 2.44 10^6/uL (4.06-5.63); Red Cell Distribution Width 13.9 % (12-17); White Blood Count 5.5 10^3/uL (3.6-10.2)
[2023-02-06 07:27] LABS: Calcium 9.1 mg/dL (8.6-10.3); Creatinine, Serum 4.28 mg/dL (0.67-1.17); Potassium 4.8 mmol/L (3.5-5.0); eGFR CKD-EPI 13.6 (>60)
[2023-02-06] MEDS: NS 0.9% 1000 ml BAG 1,000 ML IV SCH (10:54)
[2023-02-07] MEDS: Heparin 5000 UNITS/ML 1 mL VIAL SUBCUT SCH (04:42)
[2023-02-07] MEDS ORDERED: RASBURICASE IVPB ONE (06:00)
[2023-02-07] MEDS ORDERED: NS 0.9% IVPB ONE ×3 (06:00→13:30)
[2023-02-07] MEDS ORDERED: Rasburicase 1.5 MG VIAL(NF) IVPB ONE (06:00)
[2023-02-07 06:08] LABS: Hematocrit 23.4 % (38-53); Hemoglobin 8.3 g/dL (13.2-16.3); Mean Corpuscular Hemoglobin 32.6 pg (27-33); Mean Corpuscular Hgb Conc 35.4 g/dL (31-36); Mean Corpuscular Volume 92.1 fL (80-97); Mean Platelet Volume 8.9 fL (7.5-11.2); Platelet Count 109 10^3/uL (150-450); Red Blood Count 2.54 10^6/uL (4.06-5.63); Red Cell Distribution Width 14.2 % (12-17); White Blood Count 5.3 10^3/uL (3.6-10.2)
[2023-02-07 06:33] LABS: Anion Gap 8 mmol/L (2-16); CO2 Carbon Dioxide 18 mmol/L (22-32); Chloride 106 mmol/L (101-111); Magnesium 1.6 mg/dL (1.9-2.7); Potassium 5.2 mmol/L (3.5-5.0); Sodium 132 mmol/L (135-145)
[2023-02-07 06:38] LABS: Blood Urea Nitrogen 77 mg/dL (6-24); Glucose 123 mg/dL (70-100); Phosphorus 6.3 mg/dL (2.5-5.0); eGFR CKD-EPI 16.2 (>60)
[2023-02-07] MEDS ORDERED: Dexamethasone IV 40 MG in NS 0.9% 50 ML 50 ML IVPB ONE ×2 (07:00→09:00)
[2023-02-07] MEDS ORDERED: Lidocaine 1% MPF 5 ML VIAL INJ ONE (09:21)
[2023-02-07] MEDS ORDERED: Magnesium Sulfate 2 gm BAG 2 GM/50 ML BAG IVPB ONE (09:29)
[2023-02-07] MEDS: Sodium Bicarb 650 mg (ANTACID) TAB PO SCH ×2 (10:26→22:47)
[2023-02-07] MEDS: NS 0.9% 1000 ml BAG 1,000 ML IV SCH (11:07)
[2023-02-07] MEDS ORDERED: Bortezomib SQ USE 3.5 MG/1.4 ML VIAL SUBCUT ONE (13:00)
[2023-02-07] MEDS ORDERED: CYCLOPHOSPHAMIDE IVPB ONE ×2 (13:30)
[2023-02-07 13:39] LABS: Uric Acid < 1.7 mg/dL (4.4-7.6)
[2023-02-07] MEDS ORDERED: Sulfamethox/Trimethoprim DS TAB 800/160 mg PO SCH (15:00)
[2023-02-08 05:28] LABS: ABS Lymphocytes 0.8 10^3/uL (1.0-4.8); ABS Monocytes 0.6 10^3/uL (0.0-1.1); ABS Neutrophils 4.4 10^3/uL (1.5-7.6); Hematocrit 22.3 % (38-53); Hemoglobin 7.8 g/dL (13.2-16.3); Lymphocyte % 13.3 %; Mean Corpuscular Hemoglobin 32.3 pg (27-33); Mean Corpuscular Hgb Conc 35.1 g/dL (31-36); Mean Corpuscular Volume 92.1 fL (80-97); Mean Platelet Volume 9.1 fL (7.5-11.2); Platelet Count 112 10^3/uL (150-450); Red Blood Count 2.42 10^6/uL (4.06-5.63); Red Cell Distribution Width 13.8 % (12-17); White Blood Count 5.8 10^3/uL (3.6-10.2)
[2023-02-08 05:30] LABS: INR 1.02 (0.83-1.13)
[2023-02-08 05:42] LABS: Calcium 8.8 mg/dL (8.6-10.3); Creatinine, Serum 3.4 mg/dL (0.67-1.17); Magnesium 1.9 mg/dL (1.9-2.7); Phosphorus 6.2 mg/dL (2.5-5.0)
[2023-02-08] MEDS: NS 0.9% 1000 ml BAG 1,000 ML IV SCH (06:26)
[2023-02-08] MEDS ORDERED: NS 0.9% 1000 ml BAG 1,000 ML IV SCH (07:45)
[2023-02-08] MEDS: Sodium Bicarb 650 mg (ANTACID) TAB PO SCH (09:59)
[2023-02-08 13:17] LABS: PLA2R, Immunofluorescence, S Negative (Negative)
[2023-02-08 13:25] VITALS: BP 114/61
[2023-02-08 14:05] LABS: Albumin 3.8 g/dL (3.4-4.7); Flag, M-protein Isotype Positive (Negative); M spike Band 2 3.1 g/dL; Total Protein 9.6 g/dL (6.3 - 7.9)
[2023-02-08 14:46] LABS: Albumin 3.8 g/dL (3.4-4.7); Flag, M-protein Isotype Positive (Negative); M spike Band 2 3.1 g/dL; Total Protein 9.5 g/dL (6.3 - 7.9)
[2023-02-08 17:02] LABS: Case Number KR-23-5800
[2023-02-15 17:39] LABS: Referral Reason myeloma; Result Summary Abnormal; Source LPIC
[2023-02-17 10:05] LABS: BM Chromosome Source LPIC; BM Referral Reason myeloma; BM Result Summary Normal
== END 2023-02-08 16:30 | disposition home or self-care (01) | DRG 840 ==
LOC: MED 10:47 → SUATTDRO 10:47
PROVIDERS: ADMIT Internal Medicine; ATTEND Hospitalist